=== PATIENT | male | born 1955 | race Caucasian/White ===

== ENCOUNTER 2017-07-11 08:45 | Inpatient (IN) | payer OTHER ==
[~2017-07-11] VITALS: Ht 170.2 cm; Wt 100.7 kg
[~2017-07-11 08:45] MED LIST: APRESOLINE 10MG10 MG; COZAAR100 MG; DORYX100 MG; GLUCOPHAGE XR500 MG; HYDRODIURIL12.5 MG; LANTUS100 U/ML; NORVASC10 MG; ZESTORETIC 20/11 TAB; ZOCOR20 MG
[2017-07-11] MEDS ORDERED: HYZAAR 100-251 EACH PO (10:43)
[2017-07-21] MEDS ORDERED: PERCOCET 5-3251 EACH PO (11:07)
[2017-07-21] MEDS ORDERED: OMEPRAZOLE20 MG PO (11:07)
[2017-07-21] MEDS ORDERED: PROBIOTIC & AC1 EACH PO (11:07)
[2017-07-21] MEDS ORDERED: BACTRIM DS TAB1 EACH PO (11:07)
== END 2017-07-21 12:37 | disposition home or self-care (01) | DRG 330 ==
LOC: O/R 07-17 05:50 → SURH 07-17 05:50 → SURG 07-17 07:00 → SURH 07-17 11:00 → MEDI 07-17 11:00 → SURH 07-17 18:40
PROVIDERS: Colon & Rectal Surgery
PROC: 07TC4ZZ Resection of Pelvis Lymphatic, Percutaneous Endoscopic Approach (ICD-10-PCS; 2017-07-17)
PROC: 0DBU4ZZ Excision of Omentum, Percutaneous Endoscopic Approach (ICD-10-PCS; 2017-07-17)
PROC: 0DJD8ZZ Inspection of Lower Intestinal Tract, Via Natural or Artificial Opening Endoscopic (ICD-10-PCS; 2017-07-17)
PROC: 4A033R1 Measurement of Arterial Saturation, Peripheral, Percutaneous Approach (ICD-10-PCS; 2017-07-17)
PROC: 4A12X4Z Monitoring of Cardiac Electrical Activity, External Approach (ICD-10-PCS; 2017-07-17)
PROC: 0DTM4ZZ Resection of Descending Colon, Percutaneous Endoscopic Approach (ICD-10-PCS; principal; 2017-07-17 07:00)
DX: C18.6 Malignant neoplasm of descending colon (principal); L97.428 Non-pressure chronic ulcer of left heel and midfoot with other specified severity; G47.33 Obstructive sleep apnea (adult) (pediatric); E66.01 Morbid (severe) obesity due to excess calories; I13.10 Hypertensive heart and chronic kidney disease without heart failure, with stage 1 through stage 4 chronic kidney disease, or unspecified chronic kidney disease; E11.22 Type 2 diabetes mellitus with diabetic chronic kidney disease; N18.3 Chronic kidney disease, stage 3 (moderate); D64.89 Other specified anemias; B95.61 Methicillin susceptible Staphylococcus aureus infection as the cause of diseases classified elsewhere; E11.621 Type 2 diabetes mellitus with foot ulcer

== ENCOUNTER 2017-08-17 10:10 | Outpatient (CLI) | payer OTHER ==
[~2017-08-17 10:10] MED LIST changes: +BACTRIM DS TAB1 EACH PO; +HYZAAR 100-251 EACH PO; +OMEPRAZOLE20 MG PO; +PERCOCET 5-3251 EACH PO; +PROBIOTIC & AC1 EACH PO
== END 2017-08-17 10:21 | disposition home or self-care (01) ==
LOC: LAB 10:10
DX: C18.6 Malignant neoplasm of descending colon (principal); I10 Essential (primary) hypertension; E11.40 Type 2 diabetes mellitus with diabetic neuropathy, unspecified; I25.119 Atherosclerotic heart disease of native coronary artery with unspecified angina pectoris; E78.2 Mixed hyperlipidemia; D50.8 Other iron deficiency anemias; D51.8 Other vitamin B12 deficiency anemias; E03.8 Other specified hypothyroidism; R97.0 Elevated carcinoembryonic antigen [CEA]; R97.8 Other abnormal tumor markers

== ENCOUNTER 2017-08-26 11:10 | Outpatient (CLI) | payer OTHER | END 2017-08-26 12:00 | disposition home or self-care (01) | LOC: NUCLEAR 11:10 | DX: C18.6 Malignant neoplasm of descending colon (principal); I10 Essential (primary) hypertension; E11.40 Type 2 diabetes mellitus with diabetic neuropathy, unspecified; I25.119 Atherosclerotic heart disease of native coronary artery with unspecified angina pectoris; E78.2 Mixed hyperlipidemia | CPT/HCPCS: 78816; A9552 ==

== ENCOUNTER 2017-09-21 07:57 | Outpatient (CLI) | payer OTHER | END 2017-09-21 08:25 | disposition home or self-care (01) | LOC: LAB 07:57 | DX: C18.6 Malignant neoplasm of descending colon (principal); K92.1 Melena; R59.0 Localized enlarged lymph nodes; Z85.038 Personal history of other malignant neoplasm of large intestine ==

== ENCOUNTER 2017-09-25 05:48 | Day surgery (SDC) | payer OTHER | END 2017-09-25 16:20 | disposition home or self-care (01) | LOC: CIR.AMB 05:48 | DX: C18.6 Malignant neoplasm of descending colon (principal) | CPT/HCPCS: 36561; C1751 ==

== ENCOUNTER 2017-11-27 07:14 | Outpatient (CLI) | payer OTHER | END 2017-11-27 07:23 | disposition home or self-care (01) | LOC: LAB 07:14 | DX: C18.6 Malignant neoplasm of descending colon (principal) ==

== ENCOUNTER 2018-03-10 11:49 | Outpatient (CLI) | payer OTHER | END 2018-03-10 11:57 | disposition home or self-care (01) | LOC: LAB 11:49 | DX: C18.6 Malignant neoplasm of descending colon (principal); I10 Essential (primary) hypertension; E11.40 Type 2 diabetes mellitus with diabetic neuropathy, unspecified; I25.119 Atherosclerotic heart disease of native coronary artery with unspecified angina pectoris; E78.2 Mixed hyperlipidemia; D50.8 Other iron deficiency anemias; D51.8 Other vitamin B12 deficiency anemias; R97.0 Elevated carcinoembryonic antigen [CEA] ==

== ENCOUNTER 2018-07-23 10:23 | Outpatient (CLI) | payer OTHER | END 2018-07-23 10:37 | disposition home or self-care (01) | LOC: LAB 10:23 | DX: C18.6 Malignant neoplasm of descending colon (principal); D63.8 Anemia in other chronic diseases classified elsewhere ==

== ENCOUNTER → 2018-08-06 | Outpatient (CLI) | payer OTHER | END | disposition home or self-care (01) | LOC: NUCLEAR 07:00 | DX: C18.6 Malignant neoplasm of descending colon (principal); I10 Essential (primary) hypertension; E11.40 Type 2 diabetes mellitus with diabetic neuropathy, unspecified; I25.119 Atherosclerotic heart disease of native coronary artery with unspecified angina pectoris; E78.2 Mixed hyperlipidemia; Z08 Encounter for follow-up examination after completed treatment for malignant neoplasm | CPT/HCPCS: 78816; A9552 ==

== ENCOUNTER 2019-01-30 07:36 | Outpatient (CLI) | payer OTHER | END 2019-01-30 07:45 | disposition home or self-care (01) | LOC: SONOGRAMA 07:36 → MAMO-SONO 08:15 | DX: E03.8 Other specified hypothyroidism (principal); N18.3 Chronic kidney disease, stage 3 (moderate); E04.2 Nontoxic multinodular goiter ==

== ENCOUNTER 2019-04-14 07:18 | Outpatient (CLI) | payer OTHER | END 2019-04-14 15:00 | disposition home or self-care (01) | LOC: LAB 07:18 | DX: C18.6 Malignant neoplasm of descending colon (principal); D63.1 Anemia in chronic kidney disease; E78.2 Mixed hyperlipidemia; I25.119 Atherosclerotic heart disease of native coronary artery with unspecified angina pectoris; E11.40 Type 2 diabetes mellitus with diabetic neuropathy, unspecified; I10 Essential (primary) hypertension; R94.5 Abnormal results of liver function studies ==

== ENCOUNTER 2019-08-04 11:01 | Outpatient (CLI) | payer OTHER | END 2019-08-04 11:12 | disposition home or self-care (01) | LOC: LAB 11:01 | DX: R10.84 Generalized abdominal pain (principal); I10 Essential (primary) hypertension ==

== ENCOUNTER 2019-08-04 12:13 | Inpatient (IN) | payer OTHER ==
[~2019-08-04] VITALS: Ht 170.2 cm; Wt 89.8 kg
[2019-08-13] MEDS ORDERED: NORVASC10 MG PO (12:10)
[2019-08-13] MEDS ORDERED: SYNTHROID50 MCG PO ×2 (12:11)
[2019-08-20] MEDS ORDERED: ZOCOR40 MG PO (10:45)
[2019-08-20] MEDS ORDERED: ABANEU-SL TABL1 EACH (10:46)
[2019-08-20] MEDS ORDERED: B COMPLEX1 EACH (10:46)
[2019-08-20] MEDS ORDERED: SYNTHROID75 MCG PO (10:47)
[2019-08-20] MEDS ORDERED: VITAMIN D350 MC1 PO (10:47)
[2019-08-20] MEDS ORDERED: CYANOCOBAL1000 MCG/1 (10:48)
[2019-08-22] MEDS ORDERED: MIRALAX17 GM PO (10:44)
[2019-08-22] MEDS ORDERED: NEURONTIN300 MG PO (10:44)
[2019-08-22] MEDS ORDERED: TYLENOL ARTHRI650 MG PO (10:44)
[2019-08-22] MEDS ORDERED: ULTRAM50 MG PO (10:44)
== END 2019-08-22 12:55 | disposition home or self-care (01) | DRG 355 ==
LOC: SURG 08-20 05:58 → O/R 08-20 05:58 → SURG 08-20 07:00
PROVIDERS: ADMIT Surgery
PROC: 0WUF4JZ Supplement Abdominal Wall with Synthetic Substitute, Percutaneous Endoscopic Approach (ICD-10-PCS; 2019-08-20)
PROC: 0WUF4JZ Supplement Abdominal Wall with Synthetic Substitute, Percutaneous Endoscopic Approach (ICD-10-PCS; principal; 2019-08-20 07:00)
DX: K43.0 Incisional hernia with obstruction, without gangrene (principal); K42.0 Umbilical hernia with obstruction, without gangrene; E11.22 Type 2 diabetes mellitus with diabetic chronic kidney disease; I12.9 Hypertensive chronic kidney disease with stage 1 through stage 4 chronic kidney disease, or unspecified chronic kidney disease; M62.81 Muscle weakness (generalized); N18.3 Chronic kidney disease, stage 3 (moderate); G47.33 Obstructive sleep apnea (adult) (pediatric); E66.09 Other obesity due to excess calories; Z79.4 Long term (current) use of insulin

== ENCOUNTER 2019-08-14 07:12 | Outpatient (CLI) | payer OTHER ==
[~2019-08-14 07:12] MED LIST changes: +NORVASC10 MG PO; +SYNTHROID50 MCG PO
== END 2019-08-14 07:19 | disposition home or self-care (01) ==
LOC: NUCLEAR 07:12
DX: I11.9 Hypertensive heart disease without heart failure (principal); I24.8 Other forms of acute ischemic heart disease
CPT/HCPCS: 78452; 93017; A9500; J0153

== ENCOUNTER → 2019-12-14 | Outpatient (CLI) | payer OTHER ==
[~2019-12-14] MED LIST changes: +ABANEU-SL TABL1 EACH; +B COMPLEX1 EACH; +CYANOCOBAL1000 MCG/1; +MIRALAX17 GM PO; +NEURONTIN300 MG PO; +SYNTHROID75 MCG PO; +TYLENOL ARTHRI650 MG PO; +ULTRAM50 MG PO; +VITAMIN D350 MC1 PO; +ZOCOR40 MG PO
== END | disposition home or self-care (01) ==
LOC: NUCLEAR 07:18
PROVIDERS: ATTEND Internal Medicine Hematology & Oncology
DX: C18.6 Malignant neoplasm of descending colon (principal); D63.1 Anemia in chronic kidney disease; N18.3 Chronic kidney disease, stage 3 (moderate); E78.49 Other hyperlipidemia; I25.119 Atherosclerotic heart disease of native coronary artery with unspecified angina pectoris; E11.40 Type 2 diabetes mellitus with diabetic neuropathy, unspecified; I10 Essential (primary) hypertension; R94.5 Abnormal results of liver function studies
CPT/HCPCS: 78816; A9552

== ENCOUNTER 2020-04-13 07:05 | Outpatient (CLI) | payer OTHER | END 2020-04-13 07:11 | disposition home or self-care (01) | LOC: LAB 07:05 | PROVIDERS: ATTEND Ophthalmology | DX: R07.89 Other chest pain (principal); D68.8 Other specified coagulation defects; M54.6 Pain in thoracic spine ==

== ENCOUNTER 2020-08-12 07:23 | Outpatient (CLI) | payer OTHER | END 2020-08-12 07:26 | disposition home or self-care (01) | LOC: RAD 07:23 → MRI 07:23 → RAD 07:26 → MRI 07:26 | PROVIDERS: ATTEND Internal Medicine Geriatric Medicine | DX: R07.89 Other chest pain (principal); M17.11 Unilateral primary osteoarthritis, right knee; M23.206 Derangement of unspecified meniscus due to old tear or injury, right knee; I11.9 Hypertensive heart disease without heart failure; R06.02 Shortness of breath ==

== ENCOUNTER 2020-08-17 07:17 | Outpatient (CLI) | payer OTHER | END 2020-08-17 10:03 | disposition home or self-care (01) | LOC: MRI 07:17 | PROVIDERS: ATTEND Internal Medicine Geriatric Medicine | DX: M17.11 Unilateral primary osteoarthritis, right knee (principal); S83.241A Other tear of medial meniscus, current injury, right knee, initial encounter; M25.461 Effusion, right knee | CPT/HCPCS: 73721 ==

== ENCOUNTER 2021-02-01 07:48 | Outpatient (CLI) | payer OTHER | END 2021-02-01 07:55 | disposition home or self-care (01) | LOC: SONOGRAMA 07:48 | DX: R97.20 Elevated prostate specific antigen [PSA] (principal) ==

== ENCOUNTER 2021-02-14 12:02 | Inpatient (IN) | payer OTHER ==
[~2021-02-14] VITALS: Ht 170.2 cm; Wt 103.4 kg
[2021-02-20] MEDS ORDERED: NORVASC10 MG PO (17:50)
[2021-02-20] MEDS ORDERED: HYZAAR 100-251 EACH PO (17:50)
[2021-02-20] MEDS ORDERED: Lantus 1000 UNITS/10 SUBCUTANEO (17:50)
[2021-02-20] MEDS ORDERED: ABANEU-SL TABL1 EACH SL (17:50)
[2021-02-20] MEDS ORDERED: LEVOTHYROXINE112 MCG PO (17:50)
[2021-02-20] MEDS ORDERED: ZOCOR40 MG PO (17:50)
[2021-02-20] MEDS ORDERED: INTESTINEX680 M1 PO (17:50)
[2021-02-20] MEDS ORDERED: ULTRAM50 MG PO (17:50)
== END 2021-02-20 18:06 | disposition home or self-care (01) | DRG 617 ==
LOC: ER 12:02 → MEDI 23:09 → SEC-K 23:09 → MEDI 02-15 05:05
PROVIDERS: Specialist; ADMIT Internal Medicine Geriatric Medicine; ATTEND Internal Medicine Geriatric Medicine
PROC: 0Y6R0Z0 Detachment at Right 2nd Toe, Complete, Open Approach (ICD-10-PCS; principal; 2021-02-17 07:00)
DX: E11.621 Type 2 diabetes mellitus with foot ulcer (principal); L97.518 Non-pressure chronic ulcer of other part of right foot with other specified severity; I96 Gangrene, not elsewhere classified; N17.8 Other acute kidney failure; Z79.4 Long term (current) use of insulin; I10 Essential (primary) hypertension; E03.8 Other specified hypothyroidism; E66.8 Other obesity; Z20.822 Contact with and (suspected) exposure to COVID-19

== ENCOUNTER 2021-03-15 08:00 | Outpatient (CLI) | payer OTHER ==
[~2021-03-15 08:00] MED LIST changes: +ABANEU-SL TABL1 EACH SL; +INTESTINEX680 M1 PO; +LEVOTHYROXINE112 MCG PO; +Lantus 1000 UNITS/10 SUBCUTANEO
== END 2021-03-15 08:30 | disposition home or self-care (01) ==
LOC: PPH VACUNA 08:00
DX: Z23 Encounter for immunization (principal)

== ENCOUNTER 2021-03-23 07:20 | Outpatient (CLI) | payer OTHER | END 2021-03-23 07:21 | disposition home or self-care (01) | LOC: NUCLEAR 07:20 | PROVIDERS: ATTEND Internal Medicine Hematology & Oncology | DX: C18.6 Malignant neoplasm of descending colon (principal) | CPT/HCPCS: 78816; A9552 ==

== ENCOUNTER 2021-08-02 07:36 | Outpatient (CLI) | payer OTHER | END 2021-08-02 07:37 | disposition home or self-care (01) | LOC: NUCLEAR 07:36 | DX: C61 Malignant neoplasm of prostate (principal) | CPT/HCPCS: 78306; A9503 ==

== ENCOUNTER 2021-08-04 07:40 | Outpatient (CLI) | payer OTHER | END 2021-08-04 07:47 | disposition home or self-care (01) | LOC: TOM 07:40 | DX: C61 Malignant neoplasm of prostate (principal) ==

== ENCOUNTER 2021-09-05 07:05 | Outpatient (CLI) | payer OTHER | END 2021-09-05 07:13 | disposition home or self-care (01) | LOC: SONOGRAMA 07:05 | PROVIDERS: ATTEND Internal Medicine Nephrology | DX: N18.30 Chronic kidney disease, stage 3 unspecified (principal); I12.9 Hypertensive chronic kidney disease with stage 1 through stage 4 chronic kidney disease, or unspecified chronic kidney disease ==

== ENCOUNTER 2023-01-08 07:18 | Outpatient (CLI) | payer OTHER | END 2023-01-08 07:19 | disposition home or self-care (01) | LOC: NUCLEAR 07:18 | PROVIDERS: ATTEND Internal Medicine Hematology & Oncology | DX: C18.6 Malignant neoplasm of descending colon (principal); C61 Malignant neoplasm of prostate; D63.1 Anemia in chronic kidney disease; E78.2 Mixed hyperlipidemia; I25.119 Atherosclerotic heart disease of native coronary artery with unspecified angina pectoris; E11.40 Type 2 diabetes mellitus with diabetic neuropathy, unspecified; I10 Essential (primary) hypertension; R94.5 Abnormal results of liver function studies; R97.20 Elevated prostate specific antigen [PSA] | CPT/HCPCS: 78815; A9552 ==

== ENCOUNTER 2023-02-04 10:01 | Inpatient (IN) | payer OTHER ==
[~2023-02-04] VITALS: Ht 177.8 cm; Wt 104.3 kg
[2023-02-11] MEDS ORDERED: LEVOTHYROXINE150 MCG PO (14:31)
[2023-02-11] MEDS ORDERED: ZOCOR40 MG PO (14:31)
[2023-02-11] MEDS ORDERED: NORVASC10 MG PO (14:31)
[2023-02-11] MEDS ORDERED: INTESTINEX680 M1 PO (14:31)
[2023-02-11] MEDS ORDERED: TAMS0.4C PO (14:31)
[2023-02-11] MEDS ORDERED: NOVOLOG MI100 UNIT/1 SUBCUTANEO (14:31)
[2023-02-11] MEDS ORDERED: LANTUS SOL100 UNIT/1 SUBCUTANEO (14:31)
[2023-02-11] MEDS ORDERED: HYDRALAZINE HCL25 MG PO (14:31)
[2023-02-11] MEDS ORDERED: PRE PROTEIN1 EACH PO (14:31)
[2023-02-11] MEDS ORDERED: B COMPLEX1 EACH PO (14:31)
[2023-02-11] MEDS ORDERED: ABANEU-SL TABL1 EACH SL (14:31)
== END 2023-02-11 16:44 | disposition home or self-care (01) | DRG 690 ==
LOC: ER 10:01 → MEDI 22:42
PROVIDERS: ADMIT Internal Medicine Geriatric Medicine; ATTEND Internal Medicine Geriatric Medicine
PROC: BW21ZZZ Computerized Tomography (CT Scan) of Abdomen and Pelvis (ICD-10-PCS; principal; 2023-02-04)
PROC: 02HV33Z Insertion of Infusion Device into Superior Vena Cava, Percutaneous Approach (ICD-10-PCS; 2023-02-05)
PROC: B54MZZZ Ultrasonography of Right Upper Extremity Veins (ICD-10-PCS; 2023-02-09)
DX: N39.0 Urinary tract infection, site not specified (principal); N17.9 Acute kidney failure, unspecified; E87.1 Hypo-osmolality and hyponatremia; E03.9 Hypothyroidism, unspecified; N13.30 Unspecified hydronephrosis; E11.65 Type 2 diabetes mellitus with hyperglycemia; E11.22 Type 2 diabetes mellitus with diabetic chronic kidney disease; E87.6 Hypokalemia; N18.30 Chronic kidney disease, stage 3 unspecified; B96.20 Unspecified Escherichia coli [E. coli] as the cause of diseases classified elsewhere; Z79.4 Long term (current) use of insulin; I25.10 Atherosclerotic heart disease of native coronary artery without angina pectoris; I13.10 Hypertensive heart and chronic kidney disease without heart failure, with stage 1 through stage 4 chronic kidney disease, or unspecified chronic kidney disease; Z20.822 Contact with and (suspected) exposure to COVID-19; I73.9 Peripheral vascular disease, unspecified; D63.1 Anemia in chronic kidney disease; N40.1 Benign prostatic hyperplasia with lower urinary tract symptoms; N13.8 Other obstructive and reflux uropathy; C61 Malignant neoplasm of prostate

== ENCOUNTER 2023-05-09 00:56 | Inpatient (IN) | payer OTHER ==
[~2023-05-09] VITALS: Ht 170.2 cm; Wt 99.8 kg
[~2023-05-09 00:56] MED LIST changes: +B COMPLEX1 EACH PO; +HYDRALAZINE HCL25 MG PO; +LANTUS SOL100 UNIT/1 SUBCUTANEO; +LEVOTHYROXINE150 MCG PO; +NOVOLOG MI100 UNIT/1 SUBCUTANEO; +PRE PROTEIN1 EACH PO; +TAMS0.4C PO
[2023-05-09 03:12] LABS: ABG PH 7.341 (7.35-7.45); ABG PO2 100.6 mmHg (80-100); ABG pCO2 45.7 mmHg (35-45); BASE EXCESS -1.9 mmol/l; BICARBONATE 24.1 mmol/l (23-25); SaO2 97.2 %; Tco2 25.6 mmol/l
[2023-05-09 03:13] LABS: HEMATOCRIT 32.6 % (39.0-48.0); HEMOGLOBIN 11.4 g/dL (13-16.00); MEAN CELL VOLUME 82.3 fL (80.0-100.00); MEAN CORPUSCULAR HEMOGLOBIN 28.7 pg (27.00-32.0); MEAN CORPUSCULAR HGB CONC 34.9 g/dl (32.0-36.0); PLATELET COUNT 245 K/uL (150-450); RED BLOOD COUNT 3.97 M/uL (4.00-6.00); RED CELL DISTRIBUTION WIDTH 14.9 % (11.5-14.5)
[2023-05-09 03:26] LABS: INR 1.04; PARTIAL THROMBOPLASTIN TIME 28.2 SECONDS (22.0-34.0); PROTHROMBIN TIME 10.9 SECONDS (9.0-11.5)
[2023-05-09 03:32] LABS: ALBUMIN 2.5 gm/dL (3.4-5.0); BILIRUBIN TOTAL 0.33 mg/dL (0.3-1.2); CALCIUM 8.6 mg/dL (8.5-10.1); CREATININE SERUM 3.32 mg/dL (0.70-1.30); GFR 18.5; GLOBULINA 4.7 G/DL (2.4-3.5); POTASSIUM 3.05 mEq/L (3.5-5.1); TOTAL PROTEIN 7.2 gm/dL (6.4-8.2)
[2023-05-09 03:46] LABS: allen test SATISFACTORY; o2 21 %; puncture site RADIAL LEFT
[2023-05-09 05:08] LABS: PH,URINE 5.5 (5.0-8.0); URINE APPEARANCE Cloudy; URINE BILIRRUBIN Negative (NEGATIVE); URINE BLOOD Small; URINE COLOR Yellow; URINE LEUKOCYTE Small; URINE NITRATE Negative; URINE PROTEIN >=1000 (NEGATIVE); URINE UROBILINOGEN 0.2 E.U./dl
[2023-05-09 05:11] LABS: URINE EPITHELIAL CELLS 4.7 uL (0.0-38.8); URINE RBC 29.4 uL (0.0-20.8); URINE WBC 731.6 uL (0.0-23.2)
[2023-05-09 05:34] LABS: URINE BACTERIA > 9821.5 uL (0.0-1933); URINE GLUCOSE 250 MG/DL (NEGATIVE)
[2023-05-10 06:33] LABS: HEMATOCRIT 29.8 % (39.0-48.0); MEAN CELL VOLUME 83.1 fL (80.0-100.00); MEAN CORPUSCULAR HGB CONC 33.6 g/dl (32.0-36.0); PLATELET COUNT 242 K/uL (150-450); RED BLOOD COUNT 3.58 M/uL (4.00-6.00); RED CELL DISTRIBUTION WIDTH 14.8 % (11.5-14.5)
[2023-05-10 06:53] LABS: ERYTHROCYTE SEDIMENTATION RATE 56 mm/hr
[2023-05-10 06:55] LABS: MAGNESIUM 2.1 mg/dL (1.8-2.4); PHOSPHOROUS 4.8 mg/dL (2.5-4.9); TSH 3.54 uIU/mL (0.358-3.74)
[2023-05-10 07:01] LABS: C-REACTIVE PROTEIN 1.12 MG/DL (0.00-0.29)
[2023-05-11 07:42] LABS: HEMATOCRIT 29.5 % (39.0-48.0); HEMOGLOBIN 10.3 g/dL (13-16.00); MEAN CELL VOLUME 82.4 fL (80.0-100.00); MEAN CORPUSCULAR HEMOGLOBIN 28.7 pg (27.00-32.0); MEAN CORPUSCULAR HGB CONC 34.9 g/dl (32.0-36.0); PLATELET COUNT 223 K/uL (150-450); RED BLOOD COUNT 3.58 M/uL (4.00-6.00); RED CELL DISTRIBUTION WIDTH 14.8 % (11.5-14.5)
[2023-05-11 08:23] LABS: CALCIUM 8.3 mg/dL (8.5-10.1); CREATININE SERUM 3.45 mg/dL (0.70-1.30); GFR 17.69; MAGNESIUM 2.3 mg/dL (1.8-2.4); POTASSIUM 3.46 mEq/L (3.5-5.1)
[2023-05-14 06:41] LABS: PH,URINE 5.5 (5.0-8.0); URINE APPEARANCE Clear; URINE BACTERIA 1894.9 uL (0.0-1933); URINE BILIRRUBIN Negative (NEGATIVE); URINE BLOOD Moderate; URINE COLOR Yellow; URINE EPITHELIAL CELLS 4.4 uL (0.0-38.8); URINE LEUKOCYTE Negative; URINE NITRATE Negative; URINE PROTEIN >=1000 (NEGATIVE); URINE RBC 16.8 uL (0.0-20.8); URINE UROBILINOGEN 0.2 E.U./dl; URINE WBC 17.6 uL (0.0-23.2)
[2023-05-14 07:10] LABS: URINE GLUCOSE 500 MG/DL (NEGATIVE)
[2023-05-14 07:12] LABS: URINE CRYSTALS FEW /HPF
[2023-05-14 07:19] LABS: HEMATOCRIT 31.3 % (39.0-48.0); MEAN CELL VOLUME 82.1 fL (80.0-100.00); MEAN CORPUSCULAR HEMOGLOBIN 28.9 pg (27.00-32.0); MEAN CORPUSCULAR HGB CONC 35.2 g/dl (32.0-36.0); PLATELET COUNT 234 K/uL (150-450); RED BLOOD COUNT 3.82 M/uL (4.00-6.00); RED CELL DISTRIBUTION WIDTH 14.6 % (11.5-14.5)
[2023-05-14 07:37] LABS: ALBUMIN 2.1 gm/dL (3.4-5.0); BILIRUBIN TOTAL 0.32 mg/dL (0.3-1.2); CALCIUM 8.3 mg/dL (8.5-10.1); CREATININE SERUM 2.88 mg/dL (0.70-1.30); GFR 21.79; GLOBULINA 3.7 G/DL (2.4-3.5); MAGNESIUM 2.1 mg/dL (1.8-2.4); PHOSPHOROUS 4.8 mg/dL (2.5-4.9); POTASSIUM 3.13 mEq/L (3.5-5.1); TOTAL PROTEIN 5.8 gm/dL (6.4-8.2)
[2023-05-15 04:55] LABS: PH,URINE 6.5 (5.0-8.0); URINE APPEARANCE Clear; URINE BILIRRUBIN Negative (NEGATIVE); URINE BLOOD Small; URINE COLOR Yellow; URINE LEUKOCYTE Trace; URINE NITRATE Negative; URINE UROBILINOGEN 0.2 E.U./dl
[2023-05-15 04:58] LABS: URINE BACTERIA 54.1 uL (0.0-1933); URINE EPITHELIAL CELLS 9.1 uL (0.0-38.8); URINE RBC 9.7 uL (0.0-20.8); URINE WBC 34.1 uL (0.0-23.2)
[2023-05-15 05:00] LABS: URINE GLUCOSE 100 MG/DL (NEGATIVE); URINE PROTEIN 300 (NEGATIVE)
[2023-05-15 14:34] LABS: URINE APPEARANCE Cloudy; URINE BILIRRUBIN Negative (NEGATIVE); URINE BLOOD Small; URINE COLOR Yellow; URINE LEUKOCYTE Negative; URINE NITRATE Negative; URINE PROTEIN >=1000 (NEGATIVE); URINE UROBILINOGEN 0.2 E.U./dl
[2023-05-15 14:38] LABS: URINE BACTERIA 152.4 uL (0.0-1933); URINE EPITHELIAL CELLS 4.9 uL (0.0-38.8); URINE RBC 10.9 uL (0.0-20.8); URINE WBC 19.1 uL (0.0-23.2)
[2023-05-15 15:21] LABS: ALBUMIN 2.3 gm/dL (3.4-5.0); BILIRUBIN TOTAL 0.25 mg/dL (0.3-1.2); CALCIUM 8.4 mg/dL (8.5-10.1); CREATININE SERUM 2.78 mg/dL (0.70-1.30); GFR 22.7; POTASSIUM 3.18 mEq/L (3.5-5.1); TOTAL PROTEIN 6.3 gm/dL (6.4-8.2)
[2023-05-15 15:49] LABS: URINE GLUCOSE 500 MG/DL (NEGATIVE)
[2023-05-15 15:50] LABS: URINE CRYSTALS MODERATE /HPF; URINE MUCUS SCANT
[2023-05-16 06:19] LABS: HEMATOCRIT 29.4 % (39.0-48.0); HEMOGLOBIN 10.4 g/dL (13-16.00); MEAN CELL VOLUME 82.2 fL (80.0-100.00); MEAN CORPUSCULAR HGB CONC 35.2 g/dl (32.0-36.0); PLATELET COUNT 223 K/uL (150-450); RED BLOOD COUNT 3.57 M/uL (4.00-6.00); RED CELL DISTRIBUTION WIDTH 14.4 % (11.5-14.5)
[2023-05-16 06:52] LABS: CREATININE SERUM 2.77 mg/dL (0.70-1.30); GFR 22.8; PHOSPHOROUS 3.6 mg/dL (2.5-4.9); POTASSIUM 3.07 mEq/L (3.5-5.1)
[2023-05-17 12:04] LABS: ALBUMIN 2.2 gm/dL (3.4-5.0); BILIRUBIN TOTAL 0.27 mg/dL (0.3-1.2); CALCIUM 8.4 mg/dL (8.5-10.1); CREATININE SERUM 2.9 mg/dL (0.70-1.30); GFR 21.62; POTASSIUM 3.23 mEq/L (3.5-5.1); TOTAL PROTEIN 6.2 gm/dL (6.4-8.2)
[2023-05-18 08:10] LABS: CALCIUM 8.6 mg/dL (8.5-10.1); CREATININE SERUM 3.01 mg/dL (0.70-1.30); GFR 20.71; MAGNESIUM 2.3 mg/dL (1.8-2.4); PHOSPHOROUS 3.4 mg/dL (2.5-4.9); POTASSIUM 3.4 mEq/L (3.5-5.1)
[2023-05-18 08:59] LABS: HEMATOCRIT 31.5 % (39.0-48.0); HEMOGLOBIN 11.1 g/dL (13-16.00); MEAN CELL VOLUME 82.2 fL (80.0-100.00); MEAN CORPUSCULAR HGB CONC 35.3 g/dl (32.0-36.0); PLATELET COUNT 254 K/uL (150-450); RED BLOOD COUNT 3.83 M/uL (4.00-6.00); RED CELL DISTRIBUTION WIDTH 14.5 % (11.5-14.5)
[2023-05-20] MEDS ORDERED: SYMBICORT 16010.2 GM IH (14:40)
[2023-05-20] MEDS ORDERED: B COMPLEX1 EACH PO (14:40)
[2023-05-20] MEDS ORDERED: Lantus 1000 UNITS/10 SUBCUTANEO (14:40)
[2023-05-20] MEDS ORDERED: FAMOTIDINE20 MG PO (14:40)
[2023-05-20] MEDS ORDERED: HYDRALAZINE HCL50 MG PO (14:40)
[2023-05-20] MEDS ORDERED: ST. JOSEPH ASPI81 M2 PO (14:40)
[2023-05-20] MEDS ORDERED: PRE PROTEIN1 EACH PO (14:40)
[2023-05-20] MEDS ORDERED: ABANEU-SL TABL1 EACH SL (14:40)
[2023-05-20] MEDS ORDERED: TAMS0.4C PO (14:40)
[2023-05-20] MEDS ORDERED: INSULIN LI100 UNIT/1 SUBCUTANEO (14:40)
[2023-05-20] MEDS ORDERED: NIFEDIPINE ER60 MG PO (14:40)
[2023-05-20] MEDS ORDERED: CLOPIDOGREL BIS75 MG PO (14:40)
[2023-05-20] MEDS ORDERED: LEVOTHYROXINE150 MCG PO (14:40)
[2023-05-20] MEDS ORDERED: ISOSORBIDE MONO30 MG PO (14:40)
[2023-05-20] MEDS ORDERED: DOXAZOSIN MESYLA4 MG PO (14:40)
[2023-05-20] MEDS ORDERED: LANTUS SOL100 UNIT/1 SUBCUTANEO (14:40)
[2023-05-20] MEDS ORDERED: ATORVASTATIN CA40 MG PO (15:07)
== END 2023-05-20 15:22 | disposition home or self-care (01) | DRG 281 ==
LOC: ER 00:56 → ICU-2 11:44 → ICU 11:44 → MEDI 05-14 14:32
PROVIDERS: General Practice; Internal Medicine; Internal Medicine Infectious Disease; ADMIT Internal Medicine Geriatric Medicine; ATTEND Internal Medicine Geriatric Medicine
PROC: B24BZZZ Ultrasonography of Heart with Aorta (ICD-10-PCS; principal; 2023-05-09)
PROC: 02HV33Z Insertion of Infusion Device into Superior Vena Cava, Percutaneous Approach (ICD-10-PCS; 2023-05-09)
PROC: B34HZZZ Ultrasonography of Right Upper Extremity Arteries (ICD-10-PCS; 2023-05-12)
PROC: B54MZZZ Ultrasonography of Right Upper Extremity Veins (ICD-10-PCS; 2023-05-12)
PROC: 4A12X4Z Monitoring of Cardiac Electrical Activity, External Approach (ICD-10-PCS; 2023-05-14)
DX: I13.0 Hypertensive heart and chronic kidney disease with heart failure and stage 1 through stage 4 chronic kidney disease, or unspecified chronic kidney disease (principal); I21.4 Non-ST elevation (NSTEMI) myocardial infarction; N17.9 Acute kidney failure, unspecified; N39.0 Urinary tract infection, site not specified; E11.22 Type 2 diabetes mellitus with diabetic chronic kidney disease; N18.30 Chronic kidney disease, stage 3 unspecified; Z79.4 Long term (current) use of insulin; E03.9 Hypothyroidism, unspecified; E78.5 Hyperlipidemia, unspecified; I25.10 Atherosclerotic heart disease of native coronary artery without angina pectoris; E11.65 Type 2 diabetes mellitus with hyperglycemia; N13.9 Obstructive and reflux uropathy, unspecified; I50.9 Heart failure, unspecified; G47.33 Obstructive sleep apnea (adult) (pediatric); E87.6 Hypokalemia; D63.1 Anemia in chronic kidney disease; B96.20 Unspecified Escherichia coli [E. coli] as the cause of diseases classified elsewhere; B95.2 Enterococcus as the cause of diseases classified elsewhere; B96.89 Other specified bacterial agents as the cause of diseases classified elsewhere

== ENCOUNTER 2023-06-24 09:55 | Emergency (ER) | payer OTHER ==
[~2023-06-24] VITALS: Ht 170.2 cm; Wt 99.8 kg
[~2023-06-24 09:55] MED LIST changes: +ATORVASTATIN CA40 MG PO; +CLOPIDOGREL BIS75 MG PO; +DOXAZOSIN MESYLA4 MG PO; +FAMOTIDINE20 MG PO; +HYDRALAZINE HCL50 MG PO; +INSULIN LI100 UNIT/1 SUBCUTANEO; +ISOSORBIDE MONO30 MG PO; +NIFEDIPINE ER60 MG PO; +ST. JOSEPH ASPI81 M2 PO; +SYMBICORT 16010.2 GM IH
[2023-06-24 14:03] LABS: HEMATOCRIT 35.7 % (39.0-48.0); HEMOGLOBIN 12.4 g/dL (13-16.00); MEAN CELL VOLUME 83.6 fL (80.0-100.00); MEAN CORPUSCULAR HGB CONC 34.7 g/dl (32.0-36.0); PLATELET COUNT 272 K/uL (150-450); RED BLOOD COUNT 4.27 M/uL (4.00-6.00); RED CELL DISTRIBUTION WIDTH 14.2 % (11.5-14.5)
[2023-06-24 14:24] LABS: ALBUMIN 2.4 gm/dL (3.4-5.0); BILIRUBIN TOTAL 0.37 mg/dL (0.3-1.2); CALCIUM 8.6 mg/dL (8.5-10.1); CREATININE SERUM 3.1 mg/dL (0.70-1.30); GFR 20.02; GLOBULINA 4.5 G/DL (2.4-3.5); POTASSIUM 3.53 mEq/L (3.5-5.1); TOTAL PROTEIN 6.9 gm/dL (6.4-8.2)
[2023-06-24 14:47] LABS: URINE APPEARANCE Turbid; URINE BILIRRUBIN Negative (NEGATIVE); URINE BLOOD Large; URINE COLOR Dark Yellow; URINE LEUKOCYTE Moderate; URINE NITRATE Negative; URINE PROTEIN >=1000 (NEGATIVE)
[2023-06-24 14:48] LABS: URINE EPITHELIAL CELLS 28.2 uL (0.0-38.8); URINE WBC 2400.3 uL (0.0-23.2)
[2023-06-24 15:11] LABS: URINE BACTERIA > 9821.2 uL (0.0-1933); URINE GLUCOSE 100 MG/DL (NEGATIVE)
[2023-06-24 15:13] LABS: URINE YEAST NEGATIVE /hpf
== END 2023-06-24 19:26 | disposition home or self-care (01) ==
LOC: ER 09:55
PROVIDERS: Emergency Medicine
DX: R31.9 Hematuria, unspecified (principal); N39.0 Urinary tract infection, site not specified